=== PATIENT | male | born 1965 | race Caucasian/White ===

== ENCOUNTER → 2022-01-21 | Outpatient (CLI) | payer OTHER ==
--- NOTE | 2022-01-21 17:20 | CA ---
Transthoracic Echo Report Name: Kenyon Vick Age: 56 Gender: M : 1965 Exam Date: 01/21/2022 15:12 Exam Location: [facility] Ht (in): 72 Wt (lb): 378 Ordering Physician: Eric Gutierrez MD Attending/Referring Phys: Occup Therapist Lucila Priest RDCS Procedure CPT: Indications: I48.91 ATRIAL FIBRILLATION Cardiac Hx: Technical Quality: Fair Contrast 1: Total Dose (mL): Contrast 2: Total Dose (mL): MEASUREMENTS (Male / Female) Normal Values 2D ECHO LV Diastolic Diameter PLAX 5.0 cm 4.2 - 5.9 / 3.9 - 5.3 cm LV Systolic Diameter PLAX 3.7 cm IVS Diastolic Thickness 1.6 cm 0.6 - 1.0 / 0.6 - 0.9 cm LVPW Diastolic Thickness 1.5 cm 0.6 - 1.0 / 0.6 - 0.9 cm LV Relative Wall Thickness 0.6 RV Internal Dim ED PLAX 3.7 cm LA Systolic Diameter LX 4.3 cm 3.0 - 4.0 / 2.7 - 3.8 cm LA Volume 91.8 cm??? 18 - 58 / 22 - 52 cm??? M-MODE Aortic Root Diameter MM 3.6 cm MV E Point Septal Separation 0.5 cm AV Cusp Separation MM 2.6 cm DOPPLER AV Peak Velocity 115.1 cm/s AV Peak Gradient 5.3 mmHg MV Area PHT 4.3 cm??? MV Deceleration Time 143.3 ms TR Peak Velocity 241.1 cm/s TR Peak Gradient 23.2 mmHg Right Ventricular Systolic Press 28.2 mmHg FINDINGS Left Ventricle Left ventricular ejection fraction is estimated at 55-60 %. Left ventricular cavity size normal. Moderate concentric left ventricular hypertrophy. Right Ventricle Mild right ventricular dilatation. Right ventricular systolic pressure within normal limits. Right Atrium Normal right atrial size. Left Atrium Mildly increased left atrial diameter. Severely increased left atrial volume. Mildly increased left atrial area. No evidence for an atrial septal defect. Mitral Valve Structurally normal mitral valve. No mitral stenosis, regurgitation or prolapse. Aortic Valve Trileaflet aortic valve. No aortic valve stenosis or regurgitation. Tricuspid Valve Mild tricuspid regurgitation. Pulmonic Valve Pulmonic valve not well visualized. Pericardium Normal pericardium. No pericardial effusion. Aorta Normal size aortic root and proximal ascending aorta. CONCLUSIONS Concentric left ventricular hypertrophy with normal LV function Mild tricuspid regurgitation Previewed by: Dr. Evans Grigsby MD (Electronically Signed) Final Date: 21 January 2022 17:19
== END | disposition home or self-care (01) ==
LOC: RADECHMAIN 15:06
PROVIDERS: ATTEND Internal Medicine Geriatric Medicine
DX: I07.1 Rheumatic tricuspid insufficiency (principal)
CPT/HCPCS: 93306

== ENCOUNTER → 2022-02-16 | Outpatient (CLI) | payer OTHER ==
--- NOTE | 2022-02-17 03:59 | MR ---
EXAMINATION TYPE: MR brain wo/w con DATE OF EXAM: 02/16/2022 COMPARISON: None HISTORY: Regular headaches above left eye CONTRAST: Standard multiplanar, multisequence MRI departmental protocol images were obtained without contrast a nd with 15ml mL intravenous Gadavist gadolinium contrast. Ventricles and sulci appear normal. There is no mass effect or midline shift. No sign of intracranial hemorrhage. Diffusion images show no evidence of an acute infarct. Corpus callosum is intact. Sella turcica appears intact. No evidence of orbital mass. The werner and white matter structures are fairly normal signal pattern. No evidence of cerebral edema. Brainstem is intact. The contrast images show normal enhancement of the venous sinuses. There is no pathologic intracrania l enhancement. There is moderate enhancement of the wall of the left maxillary sinus and the left fro ntal sinus consistent with sinusitis. There is mucosal thickening in the maxillary and ethmoid and frontal sinuses. There is opacification left maxillary sinus. IMPRESSION: Sinusitis. No acute intracranial abnormality. Opacification left maxillary sinus and the left frontal sinus.
== END | disposition home or self-care (01) ==
LOC: RADMRIMAIN 13:34
PROVIDERS: ATTEND Nurse Practitioner Family
DX: G44.009 Cluster headache syndrome, unspecified, not intractable (principal)
CPT/HCPCS: 70553; A9585

== ENCOUNTER 2022-04-30 06:31 | Day surgery (SDC) | payer OTHER ==
[2022-04-26 11:16] VITALS: BMI 51.5
[~2022-04-30 06:31] MED LIST: SODIUM CHLORIDE 0.9% 1,000 ML IV SCH
[2022-04-30 07:23] VITALS: RESP 16; TEMP 97.9
[2022-04-30 07:24] LABS: Glucose,Whole Blood 128 mg/dL (70-110)
[2022-04-30 07:45] LABS: African American GFR (CKD) >90 (>60 ml/min/1.73 sqM); Anion Gap 7 mmol/L; Blood Urea Nitrogen 17 mg/dL (9-20); Calcium 9.7 mg/dL (8.4-10.2); Carbon Dioxide 25 mmol/L (22-30); Chloride 105 mmol/L (98-107); Glucose 122 mg/dL (74-99); Non-African American GFR(CKD) >90 (>60 ml/min/1.73 sqM); Potassium 3.9 mmol/L (3.5-5.1); Sodium 137 mmol/L (137-145)
[2022-04-30] MEDS ORDERED: PROPOFOL 10 MG/ML 20 ML VIAL IV ONE (07:53)
[2022-04-30] MEDS ORDERED: MIDAZOLAM 2 MG/2 ML VIAL ONE (07:53)
--- NOTE | 2022-04-30 08:31 | P.EPPROC ---
- EP Procedure Note Electrophysiology Procedure Note: Diagnosis Persistent atrial fibrillation with tiredness and fatigue Dilated left atrium Loaded with oral flecainide for 3 days prior to cardioversion On ELIQUIS Normal electrolytes and renal function Procedure Electrical cardioversion performed with a 200 J biphasic shock in the AP configuration Unsuccessful Electrical cardioversion performed with 2 simultaneous biphasic shocks, one in the AP configuration and the other in the anterior apical configuration Unsuccessful Repositioned patches in the anterior apical configuration and a 400 J biphasic shock attempted once again Unsuccessful Result Failed electrical cardioversion with 400 J biphasic shock Plan Stop flecainide Continue ELIQUIS Continue rate control for atrial fibrillation Weight loss advised Assessment for sleep apnea advised
[2022-04-30 13:45] VITALS: BP 105/56; PULSE 92
== END 2022-04-30 09:32 | disposition home or self-care (01) ==
LOC: CATHCVL 06:31
PROVIDERS: ATTEND Internal Medicine Clinical Cardiac Electrophysiology
DX: I48.19 Other persistent atrial fibrillation (principal); E78.5 Hyperlipidemia, unspecified; I10 Essential (primary) hypertension; I49.9 Cardiac arrhythmia, unspecified; G47.33 Obstructive sleep apnea (adult) (pediatric); E11.9 Type 2 diabetes mellitus without complications; Z79.899 Other long term (current) drug therapy; Z79.01 Long term (current) use of anticoagulants
CPT/HCPCS: 92960; 80048; J2250; J2704

== ENCOUNTER → 2023-07-31 | Outpatient (CLI) | payer OTHER ==
[2023-07-31 18:34] LABS: HCT 48.1 % (39.6-50.0); MCH 29.1 pg (27.0-32.0); MCHC 33.3 g/dL (32.0-37.0); MCV 87.6 FL (80.0-97.0); NRBC Per 100 WBC 0 X 10*3/uL (0.00-0.01); Platelet Count 301 X 10*3/uL (140-440); RBC 5.49 X 10*6/uL (4.40-5.60); RDW 13.8 % (11.5-14.5)
[2023-07-31 18:40] LABS: Blood Urea Nitrogen 14.5 mg/dL (9.0-27.0)
[2023-07-31 18:41] LABS: Carbon Dioxide 30.2 mmol/L (21.6-31.8); Chloride 102 mmol/L (96-109); Potassium 3.9 mmol/L (3.5-5.5); Sodium 141 mmol/L (135-145)
== END | disposition home or self-care (01) ==
LOC: LABPAT 13:15
PROVIDERS: ATTEND Internal Medicine Clinical Cardiac Electrophysiology
DX: Z01.812 Encounter for preprocedural laboratory examination (principal); I48.19 Other persistent atrial fibrillation
CPT/HCPCS: 36415; 80051; 82565; 84520; 85027

== ENCOUNTER 2023-08-05 09:54 | Day surgery (SDC) | payer OTHER ==
[2023-07-31 14:36] VITALS: BMI 55.0
[~2023-08-05 09:54] MED LIST changes: +HYDROmorphone 0.5 MG/0.5 ML SYRINGE IVP PRN; -SODIUM CHLORIDE 0.9% 1,000 ML IV SCH
[2023-08-05] MEDS ORDERED: SODIUM CHLORIDE 0.9% 1,000 ML IV ONE (10:14)
[2023-08-05 10:35] LABS: Glucose,Whole Blood 121 mg/dL (70-110)
[2023-08-05] MEDS ORDERED: PROPOFOL 10 MG/ML 20 ML VIAL IV ONE (12:20)
[2023-08-05] MEDS ORDERED: PHENYLEPHRINE-0.9% NACL SYG 1,000 MCG/10 ML SYRINGE ONE (12:20)
[2023-08-05] MEDS ORDERED: FUROSEMIDE 10 MG/ML 2 ML VIAL ONE (12:20)
[2023-08-05] MEDS ORDERED: MIDAZOLAM 2 MG/2 ML VIAL ONE (12:20)
[2023-08-05] MEDS ORDERED: SUCCINYLCHOLINE CHLORIDE 200 MG/10 ML VIAL IV ONE (12:20)
[2023-08-05] MEDS ORDERED: HEPARIN SODIUM,PORCINE 10,000 UNIT/ML 1 ML VIAL ONE (12:20)
[2023-08-05] MEDS ORDERED: HYDROmorphone (PF) 1 MG/ML ONE (12:20)
--- NOTE | 2023-08-05 13:09 | P.HPCAR ---
History of Present Illness This is Dr. Richardson dictating an H/P on this patient The patient was interviewed and examined IMPRESSION / ASSESSMENT: Persistent atrial fibrillation, symptomatic Failed flecainide Increased BMI Hypertension adequately controlled and valsartan Type 2 diabetes PLAN: Pulmonary vein isolation and linear ablation in the left atrial roof Electrical cardioversion thereafter consideration for dofetilide in the future Weight reduction Diabetes control HPI 58-year-old male patient with shortness of breath on exertion with exercise intolerance He is back in atrial fibrillation despite flecainide His blood pressure was not controlled on Isuprel and thiazides and sister valsartan 320 mg by mouth daily. It is better controlled now he has type 2 diabetes Increased BMI He denies any fever chills cough He denies any chest discomfort ROS: No fever chills or rigors, no cough, phlegm or expectoration, no nausea, vomiting or diarrhea, no hematuria, dysuria, no musculoskeletal complaints, no strokes or seizures, no skin lesions. EXAMINATION: 131/86. His mercury pulse rate in the 90s afebrile Breath sounds are equal bilaterally no rhonchi no crackles Heart sounds S1 and S2 are distant soft Central obesity No JVD REVIEW OF LABS, ECG & MEDICAL DATA Glucose 121 Sodium 141, potassium 3.9 BUN 14 and creatinine 0.9 Physical Exam Vitals: Vital Signs Temp Pulse Resp BP Pulse Ox 08/05/23 10:47 98.6 F 97 16 131/86 97 Intake and Output 08/04/23 08/05/23 08/05/23 22:59 06:59 14:59 Intake Total 50 Balance 50 Intake: IV 50 Other: Weight 184.7 kg Past Medical History Past Medical History: Atrial Fibrillation, Diabetes Mellitus, Hyperlipidemia, Hypertension, Sleep Apnea/CPAP/BIPAP Additional Past Medical History / Comment(s): USES CPAP-. CHRONIC SINUSITIS History of Any Multi-Drug Resistant Organisms: None Reported Additional Past Surgical History / Comment(s): VASECTOMY. LIPOMA RT INNER THIGH. cardioversion Past Anesthesia/Blood Transfusion Reactions: No Reported Reaction Smoking Status: Never smoker - Past Family History Mother Family Medical History: No Reported History Physical Examination Vital Signs Temp Pulse Resp BP Pulse Ox 08/05/23 10:47 98.6 F 97 16 131/86 97 Intake and Output 01/08/24 01/09/24 01/09/24 22:59 06:59 14:59 Intake Total 50 Balance 50 Intake: IV 50 Other: Weight 184.7 kg Results Current Medications Generic Name Dose Route Start Last Admin Trade Name Carlos PRN Reason Stop Dose Admin Hydromorphone HCl 0.5 mg 08/05/23 07:00 Hydromorphone 0.5 Mg/0.5 Ml Syringe IVP 08/05/23 23:00 Q5M PRN Phase 1 or 2 - Pain Control Sodium Chloride 1,000 mls @ 50 mls/hr 08/05/23 06:24 Saline 0.9% IV 09/04/23 06:25 .Q20H JESSICA Lactated Ringer's 1,000 mls @ 20 mls/hr 08/05/23 06:24 Lactated Ringers IV 09/04/23 06:25 .Q24H JESSICA Intake and Output 08/04/23 08/05/23 08/05/23 22:59 06:59 14:59 Intake Total 50 Balance 50 Intake: IV 50 Other: Weight 184.7 kg Patient Weight 08/06/23 06:59 Weight 184.7 kg
[2023-08-05] MEDS ORDERED: LIDOCAINE 1% INJ 10MG/ML (20 ML MDV) ONE (13:18)
[2023-08-05] MEDS ORDERED: HEPARIN SOD,PORK IN 0.45% NACL 25,000 UNIT in 0.45% NACL 1 250ML.BAG IV ONE (13:20)
[2023-08-05] MEDS ORDERED: LIDOCAINE 1% INJ 10MG/ML (20 ML MDV) SQ ONE (13:23)
[2023-08-05] MEDS ORDERED: IOPAMIDOL-370 100ML BTL INJ ONE (15:55)
[2023-08-05] MEDS ORDERED: LACTATED RINGERS 1,000 ML IV ONE (15:56)
--- NOTE | 2023-08-05 16:22 | P.EPPROC ---
- EP Procedure Note Electrophysiology Procedure Note: PROCEDURE A. fib ablation DIAGNOSIS Persistent Atrial fibrillation, symptomatic, refractory to therapy Morbid obesity, hypertension and diabetes RESULT No left atrial appendage mass seen on intracardiac echo, normal LV function Complex right pulmonary venous anatomy,, and left pulmonary veins, large size Successful A. fib ablation/pulmonary vein isolation of all veins using cryo- ablation Complete entrance block in all 4 veins confirmed Left atrial roof ablation No evidence for phrenic nerve injury Esophageal deflection YES Electrical cardioversion with a synchronized shock across the chest YES PROCEDURE DETAILS Written informed consent prior to procedure. Patient brought to the EP lab. General anesthesia given. Heparin administered. A city maintained above 300 seconds Both groins prepped and draped per protocol and venous sheaths placed. Esophagus intubated, circa catheter for temperature monitoring an endoscope for possible esophageal deflection. Phrenic nerve monitoring performed. Esophageal temperature monitoring performed. Esophageal deflection performed if circa catheter overlapping with the balloon or circa temperature less than 27.5C Intracardiac echocardiography performed. Pericardium evaluated. Left atrial appendage evaluated. Left atrium evaluated along with pulmonary veins Transseptal catheterization performed under fluoroscopic guidance and intracardiac echo guidance Cryoablation sheath exchanged, balloon catheter along with achieve catheter placed in the left atrium. Pulmonary veins isolated in the following sequence: Left superior pulmonary vein followed by left inferior pulmonary vein, followed by right inferior pulmonary vein and lastly right superior pulmonary vein. Phrenic nerve stimulation along with capture thresholds within the SVC and right superior pulmonary vein to identify the phrenic nerve proximity to the cryo- ba lloon. Pulmonary veins isolated and confirmed with entrance and exit block. Phrenic nerve integrity confirmed at the end of the procedure Ablation of the left atrial roof performed with sequential lesions from the left superior to the right superior pulmonary veins. Ablation of the electrograms confirmed Electrical cardioversion performed for persistence of atrial fibrillation despite successful ablation. 200 J shock in the AP configuration failed To 17 years cardioversions performed one in the AP configuration one in the anterior apical configuration, 2002 J. Successful conversion to sinus rhythm Diagnostic catheters for the high right atrium, His bundle, coronary sinus placed. LA and RA pressures recorded RA pressure: /18 LA pressure: Diagnostic EP study with coronary sinus pacing and recording Baseline measurements: AH 99 HV 58 Venous sheaths were removed and hemostasis assured with a closure device. Patient extubated and transferred to recovery Increase procedural time During ablation multiple attempts had to be made to move the esophagus a safe distance of the from the pulmonary vein draining cryoablation, to avoid excessive thermal cooling of the esophagus This took extra time and effort to keep the esophagus a safe distance away from the cryoablation balloon. The right-sided inferior vein was very posteriorly directed and required extreme counterclockwise for complete occlusion The upper branch of the right inferior vein was cannulated and cryoablation was performed in the fernando between the right superior and right inferior veins A very large right superior vein. An additional antral level isolation was performed The left-sided veins, and, very large and multiple ablation performed at the antral level for complete isolation Multiple attempts needed for successful cryoablation isolation of the pulmonary vein PROCEDURES PERFORMED Diagnostic EP study CS pacing and recording Left and right transseptal catheterization Catheter the mapping of the tachycardia Intracardiac echocardiography Pulmonary vein isolation with transseptal and comprehensive EPS, [id number] Extended procedure duration Left atrial roof line, +[id number] Electrical cardioversion with a synchronized shock across the chest [id number]
--- NOTE | 2023-08-05 16:27 | P.PRLE ---
RE: Kenyon Vick Dear Imad Mr. Vick underwent in A. fib ablation with PVI and left atrial fibrillation He has previously failed flecainide I would continue flecainide, along with anticoagulation His main issue is his weight. He has started Mounjaro but has not lost any significant amount of weight over the last one month Hopefully he does so in the next 3-6 months Thank you for entrusting me with the care of the patient Warm regards Sincerely Monty Richardson
[2023-08-05 17:08] LABS: Glucose,Whole Blood 117 mg/dL (70-110)
[2023-08-05] MEDS ORDERED: ACETAMINOPHEN IV (For NPO) 1,000 MG in EMPTY BAG 1 BAG IVPB ONE (18:02)
[2023-08-05] MEDS ORDERED: ACETAMINOPHEN TAB 325 MG TAB PO PRN (18:02)
[2023-08-05] MEDS: SODIUM CHLORIDE 0.9% 1,000 ML IV SCH (19:34)
[2023-08-05] MEDS: LACTATED RINGERS 1,000 ML IV SCH (19:34)
[2023-08-05] MEDS: APIXABAN 5 MG TAB PO SCH (21:44)
[2023-08-06] MEDS: SODIUM CHLORIDE 0.9% 1,000 ML IV SCH (04:21)
[2023-08-06] MEDS: LACTATED RINGERS 1,000 ML IV SCH (05:08)
[2023-08-06 06:49] LABS: ALT 21 U/L (4-49); AST 56 U/L (17-59); African American GFR (CKD) >90 (>60 ml/min/1.73 sqM); Albumin 3.5 g/dL (3.5-5.0); Albumin/Globulin Ratio 1.3; Alkaline Phosphatase 70 U/L (38-126); Anion Gap 11 mmol/L; Blood Urea Nitrogen 21 mg/dL (9-20); Calcium 9.3 mg/dL (8.4-10.2); Carbon Dioxide 27 mmol/L (22-30); Chloride 98 mmol/L (98-107); Globulin 2.6 g/dL; Glucose 122 mg/dL (74-99); Non-African American GFR(CKD) 86 (>60 ml/min/1.73 sqM); Potassium 3.9 mmol/L (3.5-5.1); Sodium 136 mmol/L (137-145); Total Bilirubin 0.9 mg/dL (0.2-1.3); Total Protein 6.1 g/dL (6.3-8.2)
--- NOTE | 2023-08-06 08:01 | P.DS ---
Providers Attending physician: Monty Richardson Primary care physician: [facility] Course: Patient is doing fairly well. He has been ambulating around the room He has developed a sore throat but no true chest discomfort Breath sounds are decreased bilaterally Heart sounds are regular and soft Groins have healed well no hematoma Twelve-lead EKG shows sinus mechanism first degree AV block normal ST segments Patient is on metoprolol succinate 25 mg by mouth daily He is not on flecainide His labs were reviewed Sodium 136, potassium 3.9 BUN 21 and creatinine 0.97 Liver function tests are normal TSH is 0.5 Impression Persistent atrial fibrillation, symptomatic Hypertension, with intermittently elevated blood pressure readings Intolerant of valsartan 320 mg by mouth daily. Currently on lisinopril 40 mg daily and have chronic hyponatremia from milligrams daily Morbid obesity BMI 57, started Mounjaro about a month back Suggest Continue anticoagulation Continue blood pressure control with lisinopril and hydrochlorothiazide Minimize the use of Naprosyn Continue metoprolol succinate 25 mg for now but may consider reducing it to 12.5 mg daily given the mildly prolonged AL interval, especially if he maintains sinus rhythm Continue rosuvastatin Home blood pressure monitoring Lipid panel rosuvastatin 5 mg. Previously the patient was on 10 mg of rosuvastatin Patient Condition at Discharge: Stable Plan - Discharge Summary Discharge Rx Participant: No New Discharge Prescriptions: No Action Rosuvastatin Calcium [Ezallor Sprinkle] 5 mg PO DAILY Metoprolol Succinate (ER) [Toprol Xl] 25 mg PO DAILY Apixaban [Eliquis] 5 mg PO BID lisinopriL 40 mg PO DAILY hydroCHLOROthiazide 25 mg PO DAILY Diclofenac Sodium [Voltaren] 75 mg PO BID Tirzepatide [Mounjaro] 2.5 mg SQ MO Discharge Medication List Apixaban [Eliquis] 5 mg PO BID 04/26/22 [History] Metoprolol Succinate (ER) [Toprol Xl] 25 mg PO DAILY 04/26/22 [History] Rosuvastatin Calcium [Ezallor Sprinkle] 5 mg PO DAILY 04/26/22 [History] hydroCHLOROthiazide 25 mg PO DAILY 04/26/22 [History] lisinopriL 40 mg PO DAILY 04/26/22 [History] Diclofenac Sodium [Voltaren] 75 mg PO BID 07/31/23 [History] Tirzepatide [Mounjaro] 2.5 mg SQ MO 07/31/23 [History]
[2023-08-06] MEDS ORDERED: lisinopriL 20 MG TAB PO SCH (09:00)
[2023-08-06] MEDS ORDERED: ATORVASTATIN 10 MG TAB PO SCH (09:00)
[2023-08-06] MEDS ORDERED: hydroCHLOROthiazide 25 MG TAB PO SCH (09:00)
[2023-08-06] MEDS: METOPROLOL SUCCINATE (ER) 25 MG TAB.ER.24H PO SCH ×2 (09:24→09:25)
[2023-08-06] MEDS: APIXABAN 5 MG TAB PO SCH (09:24)
[2023-08-06 09:31] VITALS: BP 115/70; PULSE 88; RESP 22; TEMP 98.2
== END 2023-08-06 13:40 | disposition home or self-care (01) ==
LOC: CATHEP 09:54 → 6NMEDSUR 15:51 → CATHEP 08-06 13:40
PROVIDERS: ATTEND Internal Medicine Clinical Cardiac Electrophysiology
DX: I48.19 Other persistent atrial fibrillation (principal); I10 Essential (primary) hypertension; E11.9 Type 2 diabetes mellitus without complications; G47.33 Obstructive sleep apnea (adult) (pediatric); E66.01 Morbid (severe) obesity due to excess calories; E78.5 Hyperlipidemia, unspecified; J32.8 Other chronic sinusitis; Z79.899 Other long term (current) drug therapy; Z68.43 Body mass index [BMI] 50.0-59.9, adult
CPT/HCPCS: 93656; 93657; 86900; 86901; 80053; 84443; 86850; C1894 ×2; C1769 ×3; C1760; C1730 ×2; C1759; C1893; C1733; C1766; J2001; Q9967; J1644

== ENCOUNTER → 2023-10-29 | Outpatient (CLI) | payer OTHER ==
[2023-10-29 11:20] LABS: African American GFR (CKD) >90 (>60 ml/min/1.73 sqM); Anion Gap 4 mmol/L; Blood Urea Nitrogen 15 mg/dL (9-20); Carbon Dioxide 32 mmol/L (22-30); Chloride 104 mmol/L (98-107); Non-African American GFR(CKD) >90 (>60 ml/min/1.73 sqM); Potassium 4.4 mmol/L (3.5-5.1); Sodium 140 mmol/L (137-145)
[2023-10-29 11:25] LABS: HCT 51.6 % (39.0-53.0); HGB 16.9 gm/dL (13.0-17.5); MCH 29.2 pg (25.0-35.0); MCHC 32.7 g/dL (31.0-37.0); MCV 89.4 fL (80.0-100.0); Mean Platelet Volume 8.1; Platelet Count 342 k/uL (150-450); RBC 5.77 m/uL (4.30-5.90); RDW 14.1 % (11.5-15.5); WBC 10.8 k/uL (3.8-10.6)
== END | disposition home or self-care (01) ==
LOC: LABPAT 10:40
PROVIDERS: ATTEND Internal Medicine Clinical Cardiac Electrophysiology
DX: Z01.812 Encounter for preprocedural laboratory examination (principal); I48.92 Unspecified atrial flutter; I48.19 Other persistent atrial fibrillation
CPT/HCPCS: 36415; 80051; 82565; 84520; 85027

== ENCOUNTER 2023-10-30 11:03 | Day surgery (SDC) | payer OTHER ==
[2023-10-30] MEDS: SODIUM CHLORIDE 0.9% 1,000 ML IV ONE (11:28)
[2023-10-30 11:39] LABS: Glucose,Whole Blood 102 mg/dL (70-110)
[2023-10-30 11:54] LABS: Basophils # (A) 0.1 k/uL (0-0.2); Basophils % (A) 1 %; Eosinophils # (A) 0.3 k/uL (0-0.7); Eosinophils % (A) 3 %; HCT 49.1 % (39.0-53.0); HGB 16.5 gm/dL (13.0-17.5); Lymphocytes # (A) 2.9 k/uL (1.0-4.8); Lymphocytes % (A) 25 %; MCH 29.4 pg (25.0-35.0); MCHC 33.5 g/dL (31.0-37.0); MCV 87.8 fL (80.0-100.0); Mean Platelet Volume 8.6; Monocytes # (A) 0.8 k/uL (0-1.0); Monocytes % (A) 7 %; Neutrophils # (A) 7.4 k/uL (1.3-7.7); Neutrophils % (A) 63 %; Platelet Count 380 k/uL (150-450); RBC 5.59 m/uL (4.30-5.90); RDW 14.4 % (11.5-15.5); WBC 11.7 k/uL (3.8-10.6)
[2023-10-30 12:03] LABS: ALT 21 U/L (4-49); AST 21 U/L (17-59); African American GFR (CKD) >90 (>60 ml/min/1.73 sqM); Albumin 3.9 g/dL (3.5-5.0); Alkaline Phosphatase 79 U/L (38-126); Anion Gap 6 mmol/L; Blood Urea Nitrogen 17 mg/dL (9-20); Calcium 9.8 mg/dL (8.4-10.2); Carbon Dioxide 28 mmol/L (22-30); Chloride 104 mmol/L (98-107); Glucose 108 mg/dL (74-99); Non-African American GFR(CKD) >90 (>60 ml/min/1.73 sqM); Potassium 3.8 mmol/L (3.5-5.1); Sodium 138 mmol/L (137-145); Total Bilirubin 0.9 mg/dL (0.2-1.3); Total Protein 6.7 g/dL (6.3-8.2)
[2023-10-30] MEDS ORDERED: MIDAZOLAM 2 MG/2 ML VIAL ONE (13:59)
[2023-10-30] MEDS ORDERED: VASOPRESSIN 20 UNIT/ML 1 ML VIAL ONE (13:59)
[2023-10-30] MEDS ORDERED: HEPARIN SODIUM,PORCINE 10,000 UNIT/ML 1 ML VIAL ONE (13:59)
[2023-10-30] MEDS ORDERED: fentaNYL (PF) 50 MCG/ML 2 ML AMP ONE (13:59)
[2023-10-30] MEDS ORDERED: PHENYLEPHRINE 10 MG/ML VIAL ONE (13:59)
[2023-10-30] MEDS ORDERED: ROCURONIUM 10 MG/ML (5 ML VIAL) IV ONE (13:59)
[2023-10-30] MEDS ORDERED: PROPOFOL 10 MG/ML 20 ML VIAL IV ONE (13:59)
[2023-10-30] MEDS ORDERED: PHENYLEPHRINE-0.9% NACL SYG 1,000 MCG/10 ML SYRINGE ONE (13:59)
[2023-10-30] MEDS ORDERED: NEOSTIGMINE 1 MG/ML 10 ML VIAL ONE (13:59)
[2023-10-30] MEDS ORDERED: LIDOCAINE 1% INJ 10MG/ML (20 ML MDV) ONE ×2 (13:59→14:21)
[2023-10-30] MEDS ORDERED: GLYCOPYRROLATE 0.2 MG/ML 2 ML VIAL ONE (13:59)
[2023-10-30] MEDS ORDERED: SUCCINYLCHOLINE CHLORIDE 200 MG/10 ML VIAL IV ONE (13:59)
[2023-10-30] MEDS: LIDOCAINE 1% INJ 10MG/ML (20 ML MDV) SQ ONE (14:30)
[2023-10-30] MEDS: HEPARIN SOD,PORK IN 0.45% NACL 25,000 UNIT in 0.45% NACL 1 250ML.BAG IV ONE (15:00)
[2023-10-30] MEDS: HEPARIN SODIUM (1,000 UNIT/ML) 1,000 UNIT in SODIUM CHLORIDE 0.9% 1,000 ML IRRIGATION ONE (15:54)
[2023-10-30] MEDS: LACTATED RINGERS 1,000 ML IV ONE (15:54)
--- NOTE | 2023-10-30 18:49 | P.HPCAR ---
History of Present Illness This is Dr. Richardson dictating an H/P on this patient The patient was interviewed and examined IMPRESSION / ASSESSMENT: Atrial macro reentry possible atrial flutter. Twelve-lead EKG shows upright atrial activity in lead V1 and negatively oriented activity in the inferior leads Cycle length is about between 200-240 ms Tachycardia History of sustained atrial fibrillation status post PVI and left atrial roof ablation Hypertension Type 2 diabetes Morbid obesity PLAN: Diagnostic EP study mapping and ablation of atrial macro reentry, possible atrial flutter Continue anticoagulation HPI Patient continues to have palpitations after A-fib ablation This is associated with RVR he is quite symptomatic from this with palpitations and shortness of breath Today he is in atrial tachycardia/that looks like atrial flutter with RVR at rest ROS: No fever chills or rigors, no cough, phlegm or expectoration, no nausea, vomiting or diarrhea, no hematuria, dysuria, no musculoskeletal complaints, no strokes or seizures, no skin lesions. EXAMINATION: Pulse rate 116, afebrile Blood pressure 128/65 mmHg Heart sounds are tachycardic no murmurs Breath sounds are clear no rhonchi no crackles No lower extremity edema No JVD REVIEW OF LABS, ECG & MEDICAL DATA White count 11.7 thousand, hemoglobin 16.5 thousand Platelet count 380,000 Potassium 3.8, sodium 138 Normal renal function, normal liver function TSH 0.9 Physical Exam Vitals: Vital Signs Temp Pulse Resp BP Pulse Ox 10/30/23 11:36 97.9 F 116 H 20 128/65 97 Intake and Output 10/30/23 10/30/23 10/30/23 06:59 14:59 22:59 Intake Total 950 1711 Output Total 250 Balance 950 1461 Intake: IV 950 1711 Output: Urine 250 Other: Weight 180.1 kg Past Medical History Past Medical History: Atrial Fibrillation, Atrial Flutter, Diabetes Mellitus, Hyperlipidemia, Hypertension, Sleep Apnea/CPAP/BIPAP Additional Past Medical History / Comment(s): See Dr. Richardson's H&P. USES CPAP History of Any Multi-Drug Resistant Organisms: None Reported Past Surgical History: Ablation, Cardiac Ablation, EPS Additional Past Surgical History / Comment(s): Cardioversion, VASECTOMY, LIPOMA RT INNER THIGH Past Anesthesia/Blood Transfusion Reactions: No Reported Reaction Smoking Status: Never smoker - Past Family History Mother Family Medical History: No Reported History Additional Family Medical History / Comment(s): Mother's sisters from AL/cva. Father Family Medical History: No Reported History Physical Examination Vital Signs Temp Pulse Resp BP Pulse Ox 10/30/23 11:36 97.9 F 116 H 20 128/65 97 Intake and Output 10/30/23 10/30/23 10/30/23 06:59 14:59 22:59 Intake Total 950 1711 Output Total 250 Balance 950 1461 Intake: IV 950 1711 Output: Urine 250 Other: Weight 180.1 kg Results 10/30/23 11:26 10/30/23 11:26 Cardiac Enzymes 10/30/23 Range/Units 11:26 AST 21 (17-59) U/L CBC 10/30/23 Range/Units 11:26 WBC 11.7 H (3.8-10.6) k/uL RBC 5.59 (4.30-5.90) m/uL Hgb 16.5 (13.0-17.5) gm/dL Hct 49.1 (39.0-53.0) % Plt Count 380 (150-450) k/uL Comprehensive Metabolic Panel 10/30/23 Range/Units 11:26 Sodium 138 (137-145) mmol/L Potassium 3.8 (3.5-5.1) mmol/L Chloride 104 (98-107) mmol/L Carbon Dioxide 28 (22-30) mmol/L BUN 17 (9-20) mg/dL Creatinine 0.85 (0.66-1.25) mg/dL Glucose 108 H (74-99) mg/dL Calcium 9.8 (8.4-10.2) mg/dL AST 21 (17-59) U/L ALT 21 (4-49) U/L Alkaline Phosphatase 79 (38-126) U/L Total Protein 6.7 (6.3-8.2) g/dL Albumin 3.9 (3.5-5.0) g/dL Current Medications Generic Name Dose Route Start Last Admin Trade Name Freq PRN Reason Stop Dose Admin Sodium Chloride 1,000 mls @ 20 mls/hr 10/30/23 05:55 Saline 0.9% IV 11/29/23 05:56 .Q24H JESSICA Intake and Output 10/30/23 10/30/2324 06:59 14:59 22:59 Intake Total 950 1711 Output Total 250 Balance 950 1461 Intake: IV 950 1711 Output: Urine 250 Other: Weight 180.1 kg Patient Weight 10/31/23 06:59 Weight 180.1 kg 10/30/23 11:26 10/30/23 11:26
[2023-10-30] MEDS ORDERED: ACETAMINOPHEN TAB 325 MG TAB PO PRN (18:50)
--- NOTE | 2023-10-30 19:01 | P.EPPROC ---
- EP Procedure Note Electrophysiology Procedure Note: Diagnosis Atrial tachycardia with RVR following A-fib ablation Symptomatic with RVR and shortness of breath Twelve-lead EKG is consistent with typical atrial flutter with upright P waves in V1 and negatively oriented P waves in the inferior leads The [place]/negative portion of the P waves in the inferior leads precedes the peak of the P waves in lead V1, again consistent with typical atrial flutter Final diagnosis Mitral macro reentry, atrial cycle length 208 ms RF ablation in the mitral isthmus resulted in mild prolongation of the cycle length Second line made in the anterior wall from the roofline down to the mitral isthmus and cycle length of around 260 ms Tachycardia did not terminate despite to complete endocardial RF lines On account of a very thick mitral isthmus, 1.7 cm between the endocardium and the coronary sinus posterior wall in the mitral isthmus area Details Patient was brought to the EP lab in a fasting state. Written informed consent was obtained prior to procedure Venous sheaths placed in the right left femoral veins Diagnostic mapping and ablation catheters were placed in the heart Intracardiac echo revealed normal LV and RV size and function no left atrial appendage thrombus First the cavotricuspid isthmus was mapped. Anatomic mapping was performed Along the isthmus was noted Entrainment mapping was performed in the cavotricuspid isthmus with a post pacing impedance will was long, greater than 150 ms Entrainment mapping was then performed from the distal coronary sinus and the tachycardia was entrained from the coronary sinus successfully Therefore heparin was started Left and right transseptal catheterization was performed Deflectable sheath was placed in the left atrium Right atrial pressure 23/17/20 mmHg LA pressure 33/12/21 mmHg A Penta ray catheter was placed in the left atrium and electroanatomic mapping/activation mapping was performed Mitral reentry was noted The mitral isthmus between the mitral annulus and left inferior pulmonary vein was mapped The length was about 2.7 cm A complete endocardial line of RF patients with AV node disease or severe bradycardia, in whom the anticipated right ventricular pacing percentage will be high with standard dual-chamber pacing are at a disadvantage since RV pacing over years promotes LV systolic dysfunction and heart failure as well as increased episodes of atrial fibrillation. Biventricular pacing either using an LV lead in the coronary epicardial veins or His bundle pacing promotes a synchronized LV contraction and preserves LV systolic function with reduction in heart failure. One advantage of His bundle pacing is that it promotes conduction down both the normal bundles, simulating intrinsic conduction and preserving LV systolic function This is especially so in patients who already have LV dysfunction performed This resulted in about a 20 ms prolongation of the cycle length However despite 40 W of power and excellent contact force, a complete line of block endocardially did not result in termination Later the lesion from the coronary sinus was also delivered without termination Therefore a second mitral line was made from the left atrial roof to the mitral valve medial to the left atrial appendage This is a very long But a complete line of block was made and this was confirmed with electroanatomic mapping However this resulted in a further 20 ms prolongation of the cycle length without termination Activation mapping was once again performed Roofline was made once again but this did not result in termination of the tachycardia RF ablation was then performed in the ridge area from the left superior pulmonary vein down to the mitral line without any lengthening of the cycle length of the tachycardia At this point the catheter was removed from the left atrium into the right atrium Entrainment mapping once again performed in the cavotricuspid isthmus reconfirmed lack of entrainment from the site The venous sheaths were closed with Perclose for 2 accesses and Vascade for 1 access The groins healed well without any acute complications The patient underwent Spencer catheterization and this was removed at the end of the procedure and he was successfully extubated Electrical cardioversion was performed 2 defibrillators were used: 1 in the AP configuration and the other in the anterior apical configuration Successful conversion to sinus rhythm was obtained Plan Recommend alcohol ablation of the mitral isthmus Continue anticoagulation for now
--- NOTE | 2023-10-30 19:05 | P.EPPROC ---
- EP Procedure Note Electrophysiology Procedure Note: This is a very long procedure on account of a very thick mitral isthmus 2 RF endocardial lines were made but this resulted only in prolongation of the cycle length of the tachycardia without termination Roofline was also made and ablation was also performed from in the ridge between the left atrial appendage to the mitral isthmus and connected to the mitral line but this did not result in any further lengthening of the tachycardia Mapping of the right atrium was performed Multiple maps of the left atrium were made after each ablation to ensure that there was no change in the macro reentry Activation mapping as well as voltage mapping was performed This was a very long procedure on account of a very large atrium and a very thick atrial wall especially in the mitral isthmus area that precluded successful transmural ablation
[2023-10-30 19:06] LABS: Glucose,Whole Blood 128 mg/dL (70-110)
[2023-10-30 21:33] LABS: Glucose,Whole Blood 124 mg/dL (70-110)
[2023-10-30] MEDS: INSULIN ASPART (NovoLOG) 100 UNIT/ML VIAL SQ SCH (21:37)
[2023-10-30] MEDS: METOPROLOL SUCCINATE (ER) 50 MG TAB.ER.24H PO SCH (21:59)
[2023-10-30] MEDS: APIXABAN 5 MG TAB PO SCH (21:59)
[2023-10-30] MEDS: ETODOLAC 400 MG TAB PO SCH (22:02)
[2023-10-30] MEDS: ACETAMINOPHEN IV (For NPO) 1,000 MG in EMPTY BAG 1 BAG IVPB ONE (22:04)
[2023-10-31] MEDS: SODIUM CHLORIDE 0.9% 1,000 ML IV SCH (00:16)
[2023-10-31 06:20] LABS: Glucose,Whole Blood 131 mg/dL (70-110)
[2023-10-31] MEDS: ATORVASTATIN 10 MG TAB PO SCH (08:57)
[2023-10-31] MEDS: hydroCHLOROthiazide 25 MG TAB PO SCH (10:43)
[2023-10-31] MEDS: lisinopriL 20 MG TAB PO SCH (10:43)
[2023-10-31 10:48] VITALS: BP 108/70; PULSE 74; RESP 18; TEMP 98
--- NOTE | 2023-10-31 11:01 | P.DS ---
Providers Expected date of discharge: 10/31/23 Attending physician: Monty Richardson Primary care physician: [facility] Course: This is a 58-year-old male patient brought into the hospital by Dr. Richardson for RF ablation for atrial tachycardia. Patient states that he feels a little sore in his chest about the same as yesterday. No lightheadedness or dizziness. Blood pressure is soft on this admission with 108/70. He had Toprol XL recently increased to 50 mg twice daily. He is also on lisinopril and hydrochlorothiazide. Groin shows no sign of hematoma, area soft to palpation. Patient will be discharged home today in stable condition follow-up in the office in 1 week. Lisinopril will be discontinued for now and blood pressure/medications will be addressed at the office visit. Patient Condition at Discharge: Good Plan - Discharge Summary Discharge Rx Participant: No New Discharge Prescriptions: Continue Rosuvastatin Calcium [Ezallor Sprinkle] 5 mg PO QAM Metoprolol Succinate (ER) [Toprol XL] 50 mg PO BID Apixaban [Eliquis] 5 mg PO BID hydroCHLOROthiazide 25 mg PO QAM Diclofenac Sodium [Voltaren] 150 mg PO DAILY Tirzepatide [Mounjaro] 5 mg SQ MO Discontinued lisinopriL 40 mg PO QAM Discharge Medication List Apixaban [Eliquis] 5 mg PO BID 04/26/22 [History] Metoprolol Succinate (ER) [Toprol XL] 50 mg PO BID 04/26/22 [History] Rosuvastatin Calcium [Ezallor Sprinkle] 5 mg PO QAM 04/26/22 [History] hydroCHLOROthiazide 25 mg PO QAM 04/26/22 [History] Diclofenac Sodium [Voltaren] 150 mg PO DAILY 07/31/23 [History] Tirzepatide [Mounjaro] 5 mg SQ MO 07/31/23 [History] Follow up Appointment(s)/Referral(s): Monty Richardson MD [STAFF PHYSICIAN] - 11/07/23 10:30 am Activity/Diet/Wound Care/Special Instructions: Post EP study - Ablation instructions 1. Keep access sites dry for 2 days. 2. No heavy lifting or straining for 2 days. 3. Avoid bending the hips repeatedly for 2 days. 4. You may go up and down stairs slowly Call if the following is noted 1. Bleeding, increasing swelling or pain at the access sites. 2. Increasing chest discomfort, especially upon taking a deep breath. 3. Increasing shortness of breath, at rest or with exertion. 4. Undue cough / phlegm 5. Difficulty or pain while swallowing. 6. Pain or change in color in the extremities. 7. Fever, chills, rigors. 8. Increasing headache or neurologic symptoms. 9. Dizziness, fainting, palpitations Continue Eliquis and all other cardiac medications No flecainide Discharge Disposition: HOME SELF-CARE
[2023-10-31 11:31] LABS: Glucose,Whole Blood 154 mg/dL (70-110)
== END 2023-10-31 12:20 | disposition home or self-care (01) ==
LOC: CATHEP 11:03 → 6NMEDSUR 18:20 → CATHEP 10-31 12:20
PROVIDERS: ATTEND Internal Medicine Clinical Cardiac Electrophysiology
DX: I48.92 Unspecified atrial flutter (principal); I48.91 Unspecified atrial fibrillation; I10 Essential (primary) hypertension; I47.19 Other supraventricular tachycardia; E78.5 Hyperlipidemia, unspecified; E11.9 Type 2 diabetes mellitus without complications; G47.30 Sleep apnea, unspecified; E66.01 Morbid (severe) obesity due to excess calories; Z79.01 Long term (current) use of anticoagulants; Z98.890 Other specified postprocedural states; Z82.3 Family history of stroke; Z79.899 Other long term (current) drug therapy; Z79.84 Long term (current) use of oral hypoglycemic drugs
CPT/HCPCS: 93462; 93662; 93653; 86900; 86901; 80053; 84443; 85025; 86850; C1759; C1894; C1769 ×2; C1760 ×2; C1766; C1730; C1731; C1732; J2001; J1644 ×2

== ENCOUNTER → 2024-08-06 | Day surgery (SDC) | payer OTHER ==
[2024-08-04 10:59] VITALS: BMI 51.5
[~2024-08-06] MED LIST changes: -HYDROmorphone 0.5 MG/0.5 ML SYRINGE IVP PRN; +LACTATED RINGERS 1,000 ML IV SCH; +PHENYLEPHRINE-0.9% NACL SYG 1,000 MCG/10 ML SYRINGE ONE; +PROPOFOL 10 MG/ML 20 ML VIAL IV ONE
[2024-08-06] MEDS: IV FLUID CONTINUATION 1,000 ML IV ONE (09:29)
[2024-08-06 09:39] VITALS: RESP 16; TEMP 97.8
[2024-08-06 09:42] LABS: Glucose,Whole Blood 101 mg/dL (70-110)
--- NOTE | 2024-08-06 10:04 | P.PCN ---
Date of Procedure: 08/06/24 Procedure(s) Performed: BRIEF HISTORY: Patient is a 59-year-old pleasant white male scheduled for an elective colonoscopy as a part of screening for colon cancer. PROCEDURE PERFORMED: Colonoscopy with snare polypectomy. PREOPERATIVE DIAGNOSIS: Screening for colon cancer. IV sedation per Anesthesia. PROCEDURE: After informed consent was obtained, the patient, was brought into the endoscopy unit. IV sedation was administered by Anesthesia under continuous monitoring. Digital rectal examination was normal. Initially the Olympus CF-160 flexible video colonoscope was then inserted in the rectum, gradually advanced into the cecum without any difficulty. Careful examination was performed as the scope was gradually being withdrawn. Ileocecal valve and the appendiceal orifice were visualized and appeared normal. Prep was excellent. Mucosa of the cecum, ascending colon, transverse colon, descending colon, sigmoid colon, and rectum appeared normal. In the distal rectum there was a 1.5 cm polyp that was completely removed by snare polypectomy. Scattered sigmoid diverticulosis. Retroflexion was performed in the rectum and no lesions were seen. The patient tolerated the procedure well. IMPRESSION: 1.5 cm distal rectal polyp status post snare polypectomy Scattered sigmoid diverticulosis. RECOMMENDATIONS: Findings of this examination were discussed with the patient as well as his family. He was advised to follow-up with the biopsy results. If the biopsy reveals adenoma he can have repeat colonoscopy in 3 years..
[2024-08-06 10:20] VITALS: PULSE 73
[2024-08-06 10:26] VITALS: BP 129/57
== END ==
LOC: ORWHC2ENDO 09:01
PROVIDERS: ATTEND Internal Medicine Gastroenterology
DX: Z12.11 Encounter for screening for malignant neoplasm of colon (principal); K62.1 Rectal polyp; K57.30 Diverticulosis of large intestine without perforation or abscess without bleeding; I10 Essential (primary) hypertension; E78.5 Hyperlipidemia, unspecified; G47.33 Obstructive sleep apnea (adult) (pediatric); I48.91 Unspecified atrial fibrillation; E11.9 Type 2 diabetes mellitus without complications; E66.01 Morbid (severe) obesity due to excess calories; Z79.01 Long term (current) use of anticoagulants; Z79.899 Other long term (current) drug therapy
CPT/HCPCS: 88305; 45385; J2704; J2371